=== PATIENT | male | born 1970 | race Caucasian/White ===

== ENCOUNTER 2020-04-29 10:41 | Observation (INO) | payer BC ==
[2020-04-29] MEDS ORDERED: ASPIRIN 81 MG PO STA (11:09)
[2020-04-29] MEDS ORDERED: NITROGLYCERIN SL TABS 0.4 MG TAB SUBLINGUAL STA (11:10)
--- NOTE | 2020-04-29 11:13 | ED ---
Chest Pain HPI - General Chief Complaint: Chest Pain Stated Complaint: chest pain Time Seen by Provider: 04/29/20 10:55 Source: patient, family, RN notes reviewed Mode of arrival: wheelchair Limitations: no limitations - History of Present Illness Initial Comments: This is a 49-year-old male with a history of insulin-dependent diabetes who states he had the onset this morning about 45 minutes after breakfast the midsternal chest tightness that was 3/10 severity no fevers chills nausea vomiting sweats or other issues associated with that is still there he states he does state he's been having symptoms that he is concerned about 4 representing coronary artery disease. Last 10 days he's had increased episodes of burping with upset stomach/for several days and when away within 5 days ago and recurred with some nausea vomiting diarrhea. Also about one half weeks who states he woke up not feeling well had nausea and upset stomach. He also some back tightness associated with some of the symptoms. Currently he has no other symptoms reported he states blood sugar has been managed well. No spikes and the numbers. He does also state he has a history of Yoon's esophagus many years ago which after treatment with omeprazole resolve. No other modifying factors this time MD Complaint: chest pain, other - Related Data Home Medications Medication Instructions Recorded Confirmed Acetaminophen Tab [Tylenol Tab] 1,000 mg PO Q8H PRN 04/29/20 04/29/20 Ascorbic Acid [Vitamin C] 1,000 mg PO DAILY 04/29/20 04/29/20 Aspirin EC [Ecotrin Low Dose] 81 mg PO HS 04/29/20 04/29/20 Atorvastatin Calcium [Lipitor] 80 mg PO HS 04/29/20 04/29/20 Calcium Carbonate [Tums] 500 mg PO TID PRN 04/29/20 04/29/20 Cholecalciferol [Vitamin D3 (25 1,000 unit PO DAILY 04/29/20 04/29/20 Mcg = 1000 Iu)] Cider Vinegar [Apple Cider Vinegar] 600 mg PO DAILY 04/29/20 04/29/20 Dulaglutide [Trulicity] 1.5 mg SQ MO 04/29/20 04/29/20 Hydrochlorothiazide 25 mg PO DAILY 04/29/20 04/29/20 INSULIN LISPRO (For Pump) [humaLOG 0.01 units SQ-PUMP CONTINUOUS 04/29/20 04/29/20 (For Pump)] L.acidoph,Paracasei, B.lactis 1 cap PO DAILY 04/29/20 04/29/20 [Probiotic] Lisinopril [Zestril] 10 mg PO DAILY 04/29/20 04/29/20 Omeprazole [PriLOSEC] 20 mg PO DAILY 04/29/20 04/29/20 Turmeric Root Extract [Turmeric] 500 mg PO DAILY 04/29/20 04/29/20 Allergies Allergy/AdvReac Type Severity Reaction Status Date / Time No Known Allergies Allergy Verified 04/29/20 10:49 Review of Systems ROS Statement: Those systems with pertinent positive or pertinent negative responses have been documented in the HPI. ROS Other: All systems not noted in ROS Statement are negative. EKG Findings - EKG Results: EKG: interpreted by NIKOLE, sinus rhythm (Sinus rhythm of 83. Interval 136 QRS duration 100 QT since QTC 372/437 low-voltage QRS no acute ST-T wave changes noted) Past Medical History Past Medical History: Diabetes Mellitus Additional Past Medical History / Comment(s): DM type I (insulin pump.) History of Any Multi-Drug Resistant Organisms: None Reported Past Surgical History: Appendectomy Past Psychological History: No Psychological Hx Reported Smoking Status: Never smoker Past Alcohol Use History: Occasional Past Drug Use History: None Reported General Exam - General Exam Comments Initial Comments: This is a well-developed well-nourished awake alert oriented times 3 male Limitations: no limitations General appearance: alert, in no apparent distress Head exam: Present: atraumatic, normocephalic, normal inspection Eye exam: Present: normal appearance, PERRL, EOMI. Absent: scleral icterus, conjunctival injection, periorbital swelling ENT exam: Present: normal exam, mucous membranes moist Neck exam: Present: normal inspection, full ROM, other (Stridor JVD or bruits). Absent: tenderness, meningismus, lymphadenopathy Respiratory exam: Present: normal lung sounds bilaterally. Absent: respiratory distress, wheezes, rales, rhonchi, stridor Cardiovascular Exam: Present: regular rate, normal rhythm, normal heart sounds. Absent: systolic murmur, diastolic murmur, rubs, gallop, clicks GI/Abdominal exam: Present: soft, normal bowel sounds. Absent: distended, tenderness, guarding, rebound, rigid, bruit, pulsatile mass Extremities exam: Present: normal inspection, full ROM, normal capillary refill. Absent: tenderness, pedal edema, joint swelling, calf tenderness Back exam: Present: normal inspection Neurological exam: Present: alert, oriented X3, CN II-XII intact Psychiatric exam: Present: normal affect, normal mood Skin exam: Present: warm, dry, intact, normal color. Absent: rash Course Vital Signs 04/29/20 04/29/20 10:50 11:41 Temperature 98.6 F Pulse Rate 95 Respiratory 18 Rate Blood Pressure 115/68 104/63 O2 Sat by Pulse 96 Oximetry - Reevaluation(s) Reevaluation #1: 04/29/20 12:52 Patient initially did not get much relief from the nitroglycerin. Chest Pain MDM - MDM Did review the imaging and report no acute findings I did discuss findings with the patient family was getting some improvement with this headache. I did a long discussion with patient regarding the concern for potential ACS. Patient will stay in hospital he agreed to stay and be evaluated. Case is discussed with Dr. Ayala Disposition Clinical Impression: Chest pain, Unstable angina pectoris, Diabetes Disposition: ADMITTED IP TO THIS HOSP Condition: Fair Referrals: Susan Carter MD [Primary Care Provider] - 1-2 days
[2020-04-29 11:30] LABS: Basophils % (A) 0 %; Eosinophils # (A) 0.7 k/uL (0-0.7); Eosinophils % (A) 12 %; HCT 42.8 % (39.0-53.0); HGB 14.7 gm/dL (13.0-17.5); Lymphocytes # (A) 1.5 k/uL (1.0-4.8); Lymphocytes % (A) 23 %; MCHC 34.4 g/dL (31.0-37.0); Mean Platelet Volume 7.1; Monocytes # (A) 0.3 k/uL (0-1.0); Monocytes % (A) 5 %; Neutrophils # (A) 3.7 k/uL (1.3-7.7); Neutrophils % (A) 58 %; Platelet Count 319 k/uL (150-450); RDW 12.6 % (11.5-15.5); WBC 6.4 k/uL (3.8-10.6)
[2020-04-29] MEDS ORDERED: SODIUM CHLORIDE 0.9% 500 ML 500 ML IV STA (11:32)
[2020-04-29 11:38] LABS: ALT 22 U/L (4-49); AST 20 U/L (17-59); African American GFR (CKD) >90 (>60 ml/min/1.73 sqM); Albumin 3.1 g/dL (3.5-5.0); Alkaline Phosphatase 86 U/L (38-126); Anion Gap 6 mmol/L; Blood Urea Nitrogen 14 mg/dL (9-20); Calcium 8.3 mg/dL (8.4-10.2); Carbon Dioxide 24 mmol/L (22-30); Chloride 100 mmol/L (98-107); Creatine Kinase 220 U/L (55-170); Glucose 347 mg/dL (74-99); Magnesium 2.1 mg/dL (1.6-2.3); Non-African American GFR(CKD) >90 (>60 ml/min/1.73 sqM); Potassium 4.3 mmol/L (3.5-5.1); Sodium 130 mmol/L (137-145); Total Bilirubin 0.3 mg/dL (0.2-1.3); Total Protein 5.6 g/dL (6.3-8.2)
[2020-04-29 11:44] LABS: D-Dimer 0.19 mg/L FEU (<0.60); Partial Thromboplastin Time 23.5 sec (22.0-30.0); Prothrombin Time 10.1 sec (9.0-12.0)
--- NOTE | 2020-04-29 12:02 | XR ---
EXAMINATION TYPE: XR chest 2V DATE OF EXAM: 04/29/2020 HISTORY: Chest Pain. REFERENCE: NONE. FINDINGS: The patient has taken a relatively poor aeration. The lungs are clear. Heart projects as en larged. Pleural spaces are clear. IMPRESSION: SUBOPTIMAL INSPIRATION DEMONSTRATING MILD CARDIOMEGALY.
[2020-04-29] MEDS ORDERED: HEPARIN SODIUM,PORCINE 5,000 UNIT/ML 1 ML VIAL IV ONE (12:49)
[2020-04-29] MEDS ORDERED: NITROGLYCERIN OINT 1 INCH/GM PACKET TOPICAL STA (12:49)
[2020-04-29] MEDS ORDERED: NITROGLYCERIN SL TABS 0.4 MG TAB SUBLINGUAL PRN (12:54)
[2020-04-29] MEDS ORDERED: INSULIN LISPRO (For Pump) 100 UNIT/ML VIAL SQ-PUMP SCH (13:00)
[2020-04-29] MEDS ORDERED: HEPARIN SOD,PORK IN 0.45% NACL 25,000 UNIT in 0.45% NACL 1 250ML.BAG IV SCH (13:00)
[2020-04-29] MEDS ORDERED: SODIUM CHLORIDE 0.9% 1,000 ML IV SCH (13:00)
[2020-04-29] MEDS: ACETAMINOPHEN TAB 500 MG TAB PO PRN ×2 (15:25→23:06)
[2020-04-29] MEDS ORDERED: HYDROmorphone 0.5 MG/0.5 ML SYRINGE IVP PRN (16:32)
[2020-04-29 16:37] LABS: Glucose,Whole Blood 70 mg/dL (75-99)
[2020-04-29] MEDS ORDERED: INSULIN PUMP BASAL RATES 1 EACH MISC MISCELLANE PRN (16:55)
[2020-04-29] MEDS ORDERED: INSPUCOR MISCELLANE PRN (16:55)
[2020-04-29] MEDS ORDERED: INSULIN ASPART (NovoLOG) 100 UNIT/ML VIAL SQ PRN (16:55)
[2020-04-29] MEDS: PANTOPRAZOLE 40 MG/10 ML VIAL IVP SCH (17:09)
[2020-04-29] MEDS: NITROGLYCERIN OINT 1 INCH/GM PACKET TOPICAL SCH (17:09)
[2020-04-29] MEDS: INSULIN PUMP MEAL BOLUS 1 UNIT MISC MISCELLANE SCH ×2 (18:01→22:50)
[2020-04-29] MEDS ORDERED: CALCIUM CARBONATE 500 MG CHEWABLE PO PRN (19:19)
[2020-04-29] MEDS ORDERED: HYDROcodone/APAP 5-325MG 1 EACH TAB PO PRN (19:20)
[2020-04-29] MEDS ORDERED: TEMAZEPAM 15 MG CAP PO PRN (19:21)
--- NOTE | 2020-04-29 20:26 | HP ---
HISTORY AND PHYSICAL DATE OF SERVICE: 04/29/2020 CHIEF COMPLAINTS: Chest pain. HISTORY OF PRESENT ILLNESS: 49-year-old gentleman with a past medical history of multiple medical problems including diabetes type 1 on insulin pump, Yoon's esophagus, appendectomy, being followed by Dr. Carter in the outpatient setting, had episode of vomiting a few days ago and subsequently patient had chest tightness about 3 out of 10. In the center of the chest, moving to the right side. The patient came to [facility] and was admitted for evaluation and treatment. The patient had almost similar symptoms several years ago and stress test done at the time at least 10 years ago. Currently the patient still complaining of discomfort in the anterior part of chest. The initial workup in the ER showed hyponatremia and as well as normal troponins and the EKG was showing normal sinus rhythm with a heart rate of 83 and some possible interventricular conduction abnormalities. There is no history of fever, rigors. There is no history of headache, loss of consciousness or seizures at this time. PAST MEDICAL HISTORY: History of diabetes type 1 on insulin pump, history of appendectomy, history of Yoon's esophagus. MEDICATIONS: Home medications are: 1. Tums 500 mg t.i.d. p.r.n. 2. Tylenol 1000 mg q.8 p.r.n. 3. Turmeric 500 mg p.o. daily. 4. Apple cider vinegar 600 mg p.o. 5. Vitamin C 1000 mg p.o. daily. 6. Lactobacillus acidophilus 1 capsule p.o. daily. 7. Vitamin D3 1000 daily. 8. Ecotrin 81 mg q.h.s. 9. Prilosec 20 mg p.o. daily. 10.Zestril 10 mg p.o. daily. 11.Trulicity 1.5 mg subcu Friday. 12.Insulin pump 0.01% units subcu pump. 13.Hydrochlorothiazide 25 mg p.o. daily. 14.Lipitor 80 mg q.h.s. ALLERGIES: None. FAMILY HISTORY: History of ETOH complication in the family. SOCIAL HISTORY: No history of smoking. No history of alcohol. Patient is working as an accountant property. REVIEW OF SYSTEMS: ENT: No diminished vision, hearing. Cardiovascular as mentioned. Respiratory as mentioned earlier. GI: As mentioned earlier. no dysuria. Nervous system: No numbness or weakness. Allergy: No asthma or hayfever. Musculoskeletal as mentioned earlier. Hematology/Oncology: No history of anemia. ENDOCRINE: As mentioned earlier. CONSTITUTIONAL: As mentioned earlier. Dermatology: Negative. RHEUMATOLOGY: Negative. PSYCHIATRIC: As mentioned earlier. PHYSICAL EXAMINATION: Alert and oriented times three. Pulse 84, blood pressure 103/66, respirations 18, temp 98.4, pulse ox 97% on room air. HEENT is conjunctivae normal. Oral mucosa moist. NECK is no jugular venous distention. No carotid bruit. No lymph node enlargement. Cardiovascular: S1, S2 normal. RESPIRATORY: Breath sounds diminished in the bases. No rhonchi. No crackles. ABDOMEN: Soft, mild diffuse discomfort in the epigastrium. No guarding or rigidity. No mass palpable. LEGS: No edema. No swelling. NERVOUS SYSTEM: Higher functions as mentioned earlier. Moves all 4 limbs. No focal motor or sensory deficit. LYMPHATICS: No lymph nodes palpable in the neck, axillae or groin. SKIN: No ulcer, no rashes and no bleeding. JOINTS: No active deforming arthropathy. LABS: At this time: CBC within normal limits. Sodium 130, potassium 4.3, glucose 347. 70, calcium is 8.3, creatinine kinase 220, albumin 3.1. ASSESSMENT: 1. Chest pain, possible unstable angina. 2. Elevated creatinine kinase with negative troponin. 3. Nonspecific ST changes on EKG. 4. Diabetes mellitus type 1 on insulin pump. 5. Hyponatremia. 6. Obesity with body mass of 40.4. 7. History of Yoon's esophagus. 8. History of appendectomy. 9. FULL CODE. RECOMMENDATIONS AND DISCUSSION: This 49-year-old gentleman who presented with multiple complex medical issues, we will monitor the patient closely. I would recommend repeat troponins as mentioned to rule out the possibility of myocardial infarction. Cardiology consultation. Possible stress test. Otherwise, I would also recommend proton pump inhibitors on an empiric basis. Other than that, I would also recommend resume insulin pump as at home and symptomatic treatment provided. See orders for details. Further recommendations to follow. A copy of dictation will be forwarded to Dr. Carter who is the primary physician. MMODL / IJN: [id number] /
[2020-04-29] MEDS: HEPARIN SODIUM,PORCINE 5,000 UNIT/ML 1 ML VIAL IV PRN (20:27)
[2020-04-29 20:39] LABS: Glucose,Whole Blood 204 mg/dL (75-99)
[2020-04-29] MEDS ORDERED: ASPIRIN 81 MG PO SCH (21:00)
[2020-04-29] MEDS ORDERED: ATORVASTATIN 80 MG TAB PO SCH (21:00)
[2020-04-29] MEDS: ALPRAZolam 0.25 MG TAB PO PRN ×2 (23:06→23:13)
[2020-04-30] MEDS: NITROGLYCERIN OINT 1 INCH/GM PACKET TOPICAL SCH ×2 (01:26→07:45)
[2020-04-30 02:37] LABS: African American GFR (CKD) >90 (>60 ml/min/1.73 sqM); Anion Gap 6 mmol/L; Blood Urea Nitrogen 19 mg/dL (9-20); Calcium 7.9 mg/dL (8.4-10.2); Carbon Dioxide 25 mmol/L (22-30); Chloride 104 mmol/L (98-107); Cholesterol 103 mg/dL (<200); Glucose 71 mg/dL (74-99); HDL Cholesterol 27 mg/dL (40-60); LDL Cholesterol,Calculated 56 mg/dL (0-99); Non-African American GFR(CKD) 86 (>60 ml/min/1.73 sqM); Potassium 3.7 mmol/L (3.5-5.1); Sodium 135 mmol/L (137-145); Triglycerides 98 mg/dL (<150)
[2020-04-30 02:45] LABS: Basophils % (A) 0 %; Eosinophils # (A) 0.8 k/uL (0-0.7); Eosinophils % (A) 10 %; HCT 40.3 % (39.0-53.0); HGB 13.5 gm/dL (13.0-17.5); Lymphocytes # (A) 3.2 k/uL (1.0-4.8); Lymphocytes % (A) 37 %; MCH 31.8 pg (25.0-35.0); MCHC 33.6 g/dL (31.0-37.0); MCV 94.5 fL (80.0-100.0); Mean Platelet Volume 7.1; Monocytes # (A) 0.6 k/uL (0-1.0); Monocytes % (A) 7 %; Neutrophils # (A) 3.9 k/uL (1.3-7.7); Neutrophils % (A) 45 %; Platelet Count 296 k/uL (150-450); RBC 4.26 m/uL (4.30-5.90); RDW 12.8 % (11.5-15.5); WBC 8.7 k/uL (3.8-10.6)
[2020-04-30] MEDS: HEPARIN SODIUM,PORCINE 5,000 UNIT/ML 1 ML VIAL IV PRN (05:11)
[2020-04-30 05:32] VITALS: TEMP 97.7
[2020-04-30 06:58] LABS: Glucose,Whole Blood 140 mg/dL (75-99)
[2020-04-30] MEDS ORDERED: POTASSIUM CHLORIDE ER 20 MEQ TAB.ER PO STA (07:44)
[2020-04-30] MEDS: PANTOPRAZOLE 40 MG/10 ML VIAL IVP SCH (08:21)
[2020-04-30] MEDS: INSULIN PUMP MEAL BOLUS 1 UNIT MISC MISCELLANE SCH (08:21)
[2020-04-30 08:33] VITALS: BP 121/71; PULSE 86; RESP 12
[2020-04-30] MEDS: ACETAMINOPHEN TAB 500 MG TAB PO PRN (08:34)
[2020-04-30] MEDS ORDERED: PANTOPRAZOLE 40 MG TABLET PO SCH (09:00)
[2020-04-30] MEDS ORDERED: hydroCHLOROthiazide 25 MG TAB PO SCH (09:00)
[2020-04-30] MEDS ORDERED: lisinopriL 10 MG TAB PO SCH (09:00)
[2020-04-30] MEDS ORDERED: ASCORBIC ACID 500 MG TAB PO SCH (09:00)
[2020-04-30] MEDS ORDERED: METOPROLOL TARTRATE 12.5 MG TAB PO SCH (09:00)
[2020-04-30] MEDS ORDERED: CHOLECALCIFEROL 1,000 UNIT TAB PO SCH (09:00)
[2020-04-30] MEDS ORDERED: ASPIRIN 325 MG TAB PO SCH (09:00)
--- NOTE | 2020-04-30 09:34 | CONS ---
CONSULTATION Mr. Joe is a 49-year-old gentleman with a known history of type 1 diabetes, who came into the hospital because of an epigastric burning discomfort and also some radiation to the lower chest. He strongly believes and insists that this is noncardiac and probably related to a hiatal hernia situation that he had a few years ago. 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 He has no symptoms with physical activity. His discomfort in the epigastric and lower chest area seems to be related to his food intake. It occurs an hour after eating, has gotten worse lately. He also had some diarrhea, nausea, vomiting from which she has recovered out about 2-3 days ago. He is asymptomatic, resting comfortably. Troponins are unremarkable. EKG is unremarkable. No further recurrence of symptoms. He in fact feels better. I gave him the option in view of his risk factors to stay back and have a stress test here, but he insists on going home and promises to have a stress test as an outpatient. PAST MEDICAL HISTORY: 1. Type 1 diabetes. 2. History of hyperlipidemia. 3. History of borderline hypertension. 4. History of gastroesophageal reflux disease with hiatal hernia. MEDICATIONS: Home medications include omeprazole, lisinopril 10 mg daily, insulin Humalog for insulin pump, Lipitor 80 mg daily, hydrochlorothiazide 25 mg daily, vitamin supplements. ALLERGIES: None. REVIEW OF SYSTEMS: Unremarkable other than above-mentioned facts. PHYSICAL EXAMINATION: On examination, blood pressure is 118/70, pulse rate is 70 per minute, regular. HEENT unremarkable. Fundus was not examined by me. Neck is supple. No JVD. I do not hear a carotid bruit. There is no thyromegaly. Heart exam reveals S1, S2 heard normally. No rub, murmur or gallop. Lungs are clear. Abdomen is soft, nontender. Lower extremities reveal normal pulses. No edema. Central nervous system is normal. EKG revealed sinus mechanism, no acute changes. LABORATORY DATA: Laboratory data revealed that his troponins are unremarkable. IMPRESSION: 1. Atypical chest pain. 2. Type 1 diabetes. 3. History of hypertension and hyperlipidemia. RECOMMENDATIONS: I have advised the patient to have a stress test tomorrow and then if it is normal, he can be discharged, but he wishes to go home and promises to have a stress test as an outpatient. I am recommending that he can be discharged on current medications. I am adding aspirin 81 mg and metoprolol tartrate 12.5 mg b.i.d. He can be discharged today and we will set up for an outpatient stress test followed by office visit. Advised not to do any strenuous activity after discharge. Discharge instructions were given. Prescription was provided. Thank you very much for the consult. CLARENCE / TINN: [id number] /
--- NOTE | 2020-04-30 19:02 | P.DS ---
Providers Date of admission: 04/29/20 12:55 Expected date of discharge: 04/30/20 Attending physician: Yonathan Ayala Consults: 04/29/20 12:55 Consult Physician Urgent Consulting Provider: Ramana Donald Consult Reason/Comments: Chest pain Do you want consulting provider notified?: Yes Primary care physician: Susan Carter Hospital Course: discharge diagnosis atypical chest pain likely gastritis/duodenitis with recent gastroenteritis. Ruled out ACS Diabetes type 1 on insulin pump Hyponatremia Morbid obesity with BMI 40.1 History of Yoon's esophagus History of appendectomy Mildly elevated CK Hospital course patient is a 49-year-old male with a past medical history of multiple medical problems including diabetes type 1 on insulin pump, Yoon's esophagus, appen dectomy, morbid obesity came to ER with the complaints of chest tightness mainly anterior retrosternal and epigastric region. 3 out of 10. Chest pain sometimes moving to the right. Patient came to the hospital for evolution.patient says that he recently had nausea vomiting and diarrhea for about a day after eating some unknown food.no compressive diarrhea and abdominal pain currently. Patient hadEKG showed no ST-T wave elevation. Normal sinus rhythm. Chest x-ray showedno acute cardiopulmonary process. Poor inspiratory effort. Serial troponin 3 negative. Patient was seen by cardiology and treatments outpatient follow-up for stress test. Patient will be continued on Protonix which he takes already.blood sugar is better controlled. Initial sodium level was 130 currently improved to 135. Patient is currently chest pain-free and wishes to be discharged home. patient was recommended to follow with repacker in the clinic for stress test. patient will be continued on metoprolol and aspirin. PHYSICAL EXAMINATION: Patient is lying in the bed comfortably, no acute distress, awake alert and oriented.. HEENT: Normocephalic. Neck is supple. Pupils reactive. Nostrils clear. Oral cavity is moist. Ears reveal no drainage. Neck reveals no JVD, carotid bruits, or thyromegaly. CHEST EXAMINATION: Trachea is central. Symmetrical expansion. Lung keene clear to auscultation and percussion. CARDIAC: Normal S1, S2 with no gallops. No murmurs ABDOMEN: Soft. Bowel sounds normal. No organomegaly. No abdominal bruits. Extremities: reveal no edema. No clubbing or cyanosis Neurologically awake, alert, oriented x3 with well-coordinated movements. No focal deficits noted Skin: No rash or skin lesions. Psychiatric: Coperative. Nonsuicidal Musculoskeletal: No joint swelling or deformity. Normal range of motion. Vital Signs - 24 hr 04/29/20 04/29/20 04/29/20 19:20 19:50 23:15 Temperature 98.1 F 98.1 F Pulse Rate [ 79 84 72 Right Pulse Oximetery] Respiratory 16 18 16 Rate Blood Pressure 113/65 116/63 [Right Arm] O2 Sat by Pulse 96 95 Oximetry 04/30/20 04/30/20 04/30/20 00:00 04:00 08:00 Temperature 97.7 F 97.7 F Pulse Rate [ 73 88 86 Right Pulse Oximetery] Respiratory 16 16 12 Rate Blood Pressure 100/62 121/71 [Right Arm] O2 Sat by Pulse 97 96 Oximetry Patient Condition at Discharge: Fair Plan - Discharge Summary Discharge Rx Participant: No New Discharge Prescriptions: New Metoprolol Tartrate [Lopressor] 12.5 mg PO DAILY tab Continue Calcium Carbonate [Tums] 500 mg PO TID PRN PRN Reason: upset stomach Acetaminophen Tab [Tylenol] 1,000 mg PO Q8H PRN PRN Reason: Pain Turmeric Root Extract [Turmeric] 500 mg PO DAILY Cider Vinegar [Apple Cider Vinegar] 600 mg PO DAILY Ascorbic Acid [Vitamin C] 1,000 mg PO DAILY L.acidoph,Paracasei, B.lactis [Probiotic] 1 cap PO DAILY Cholecalciferol [Vitamin D3 (25 Mcg = 1000 Iu)] 1,000 unit PO DAILY Aspirin EC [Ecotrin Low Dose] 81 mg PO HS Omeprazole [PriLOSEC] 20 mg PO DAILY Lisinopril [Zestril] 10 mg PO DAILY Dulaglutide [Trulicity] 1.5 mg SQ MO INSULIN LISPRO (For Pump) [humaLOG (For Pump)] 0.01 units SQ-PUMP CONTINUOUS Hydrochlorothiazide 25 mg PO DAILY Atorvastatin Calcium [Lipitor] 80 mg PO HS Discharge Medication List Acetaminophen Tab [Tylenol] 1,000 mg PO Q8H PRN 04/29/20 [History] Ascorbic Acid [Vitamin C] 1,000 mg PO DAILY 04/29/20 [History] Aspirin EC [Ecotrin Low Dose] 81 mg PO HS 04/29/20 [History] Atorvastatin Calcium [Lipitor] 80 mg PO HS 04/29/20 [History] Calcium Carbonate [Tums] 500 mg PO TID PRN 04/29/20 [History] Cholecalciferol [Vitamin D3 (25 Mcg = 1000 Iu)] 1,000 unit PO DAILY 04/29/20 [History] Cider Vinegar [Apple Cider Vinegar] 600 mg PO DAILY 04/29/20 [History] Dulaglutide [Trulicity] 1.5 mg SQ MO 04/29/20 [History] Hydrochlorothiazide 25 mg PO DAILY 04/29/20 [History] INSULIN LISPRO (For Pump) [humaLOG (For Pump)] 0.01 units SQ-PUMP CONTINUOUS 04/29/20 [History] L.acidoph,Paracasei, B.lactis [Probiotic] 1 cap PO DAILY 04/29/20 [History] Lisinopril [Zestril] 10 mg PO DAILY 04/29/20 [History] Omeprazole [PriLOSEC] 20 mg PO DAILY 04/29/20 [History] Turmeric Root Extract [Turmeric] 500 mg PO DAILY 04/29/20 [History] Metoprolol Tartrate [Lopressor] 12.5 mg PO DAILY tab 04/30/20 [Rx] Follow up Appointment(s)/Referral(s): Nael Esteves MD [STAFF PHYSICIAN] - 1 Week Susan Carter MD [Primary Care Provider] - 1-2 days Activity/Diet/Wound Care/Special Instructions: Cardiology recommends an outpatient stress test and follow up with cardiology. Please call office Friday morning (if they don't call you) to schedule appointment. Medication (metoprolol) added to home medication list. Continue taking until seen/cleared by repacker. Activity limited until physician follow up. Heart healthy diet. If symptoms persist or worsen call your physician or return to emergency department. Discharge Disposition: HOME SELF-CARE
[2020-05-01] MEDS ORDERED: NON FORMULARY DRUG (Dulaglutide [Trulicity] 1.5 MG) SQ SCH (19:19)
== END 2020-04-30 10:22 | disposition home or self-care (01) ==
LOC: EC 10:41 → 1SOBS 12:55
PROVIDERS: ADMIT Internal Medicine; ATTEND Internal Medicine
DX: R07.89 Other chest pain (principal); R11.2 Nausea with vomiting, unspecified; R19.7 Diarrhea, unspecified; K30 Functional dyspepsia; R51 Headache; E87.1 Hypo-osmolality and hyponatremia; R74.8 Abnormal levels of other serum enzymes; R94.31 Abnormal electrocardiogram [ECG] [EKG]; E78.5 Hyperlipidemia, unspecified; M54.9 Dorsalgia, unspecified; K22.70 Barrett's esophagus without dysplasia; E10.9 Type 1 diabetes mellitus without complications; K21.9 Gastro-esophageal reflux disease without esophagitis; K44.9 Diaphragmatic hernia without obstruction or gangrene; I10 Essential (primary) hypertension; E66.01 Morbid (severe) obesity due to excess calories; Z68.41 Body mass index [BMI] 40.0-44.9, adult; Z79.899 Other long term (current) drug therapy; Z79.4 Long term (current) use of insulin; Z96.41 Presence of insulin pump (external) (internal); Z79.82 Long term (current) use of aspirin; Z90.49 Acquired absence of other specified parts of digestive tract; Z11.59 Encounter for screening for other viral diseases
CPT/HCPCS: 93005 ×2; 96366 ×2; 96375; 96376 ×3; 96365; 99285; 36415; 85379; 83880; 80061; 80053; 80048; 82550; 83690; 83735; 84484; 85025 ×2; 85610; 85730 ×2; 71046; G0378 ×2; U0003; J1644 ×3; C9113 ×2